=== PATIENT | male | born 1980 | race Caucasian/White ===

== ENCOUNTER 2018-04-09 18:59 | Emergency (ER) | payer SELFPAY ==
[~2018-04-09] VITALS: Ht 165.1 cm; Wt 79.4 kg
[2018-04-09 19:00] VITALS: BP 134/74
--- NOTE | 2018-04-09 19:00 | NUR ---
TRIAGED PATIENT UNDER GIUSEPPE NAHED PROFILE ACCIDENTALLY
--- NOTE | 2018-04-09 19:00 | NUR ---
PT [place] [facility] [employer] FOR PREBOOK
[2018-04-09] MEDS ORDERED: BACITRACIN OINT 500 UNITS/GM PKT TP ONE ×2 (19:15→19:23)
--- NOTE | 2018-04-09 19:18 | NUR ---
BROUGHT IN BY JOHNNY HANNA, PUNTURE WOUND TO L UPPER BACK, PREBOOK. DENIES HX:,DENIES MEDS. AND DENIES PAIN.
--- NOTE | 2018-04-09 19:20 | NUR ---
BACITRACIN AND BANDAID APPLIED TO L UPPER BACK PUNCTURE WOUND, BLEEDING CONTROLLED.
[2018-04-09 19:41] VITALS: BP 135/72
--- NOTE | 2018-04-09 19:41 | NUR ---
Patient discharged with v/s stable. Written and verbal after care instructions given and explained TO PD. Patient alert, oriented and verbalized understanding of instructions. Ambulatory with steady gait. All questions addressed prior to discharge. ID band removed. Patient advised to follow up with PMD. Patient educated on indication of medication including possible reaction and side effects. Opportunity to ask questions provided and answered.
== END 2018-04-09 19:41 ==
LOC: MED 18:59
DX: S21.242A Puncture wound with foreign body of left back wall of thorax without penetration into thoracic cavity, initial encounter (principal); Z02.89 Encounter for other administrative examinations; Y35.891A Legal intervention involving other specified means, law enforcement official injured, initial encounter; Y93.89 Activity, other specified; Y92.89 Other specified places as the place of occurrence of the external cause; Y99.8 Other external cause status
CPT/HCPCS: 90471; 90715; 99283